=== PATIENT | male | born 1960 | race Caucasian/White ===

== ENCOUNTER 2016-08-31 16:15 | Outpatient (RCR) | payer BC | END 2016-09-08 12:00 | disposition home or self-care (01) | LOC: PT 16:15 | PROVIDERS: ATTEND Orthopaedic Surgery | DX: M23.203 Derangement of unspecified medial meniscus due to old tear or injury, right knee (principal); M23.41 Loose body in knee, right knee; Z98.890 Other specified postprocedural states ==